=== PATIENT | female | born 1960 | race Caucasian/White ===

== ENCOUNTER 2017-03-30 09:30 | Emergency (ER) | payer BC ==
[2017-03-30 09:42] VITALS: BP 115/62
--- NOTE | 2017-04-14 17:06 | UC ---
Skin Complaint HPI - HPI Summary HPI Summary: Pt presents to the with a CC of a pimple on the inside of her left nare since the past few weeks. pt lanced it with a clean needle 3 days ago and now the area is red, swollen, and painful. She states the redness and pain have both become worse. Denies hx of MRSA. Patient is otherwise healthy and is not immunocompromised. Denies previous skin infections. - History of Current Complaint Chief Complaint: UCSkin Time Seen by Provider: 03/30/17 09:43 Stated Complaint: NOSE COMPLAINT-RED/SWOLLEN Hx Obtained From: Patient ?: No Onset/Duration: Sudden Onset Skin Exposure Onset/Duration: Hours Ago Timing: Constant Onset Severity: Mild Current Severity: Moderate Pain Intensity: 7 Pain Scale Used: 0-10 Numeric Location: Nose Character: Swelling, Raised, Painful Aggravating: Touch Alleviating: Nothing Associated Signs & Symptoms: Positive: Negative - Allergy/Home Medications Allergies/Adverse Reactions: Allergies Allergy/AdvReac Type Severity Reaction Status Date / Time No Known Allergies Allergy Verified 11/18/13 19:29 Home Medications: Home Medications Fluticasone Propionate (Nasal) [Flonase Allergy Relief] 03/30/17 [History] ValACYclovir (*) [Valtrex 1 GM(*)] 03/30/17 [History] Review of Systems Constitutional: Negative Skin: Other - small red papule with surround erythema on iside of the left nare Eyes: Negative ENT: Negative Motor: Negative Neurovascular: Negative Musculoskeletal: Negative Psychological: Negative All Other Systems Reviewed And Are Negative: Yes PMH/Surg Hx/FS Hx/Imm Hx Previously Healthy: Yes - Surgical History Surgical History: None - Family History Known Family History: Positive: Unknown - Social History Occupation: Employed Full-time Lives: With Family Alcohol Use: Weekly Substance Use Type: None Smoking Status (MU): Never Smoked Tobacco Physical Exam Triage Information Reviewed: Yes Appearance: Well-Appearing, No Pain Distress, Well-Nourished Vital Signs: Initial Vital Signs Temp 98.8 F 03/30/17 09:37 Pulse 75 03/30/17 09:37 Resp 16 03/30/17 09:37 BP 115/62 03/30/17 09:37 Pulse Ox 100 03/30/17 09:37 Vital Signs Reviewed: Yes Eye Exam: Normal Eyes: Positive: Conjunctiva Clear ENT Exam: Normal ENT: Positive: TMs normal, Other: - small red papule with surround erythema on iside of the left nare Dental Exam: Normal Neck exam: Normal Neck: Positive: Supple, Nontender Cardiovascular Exam: Normal Cardiovascular: Positive: RRR, No Murmur Musculoskeletal Exam: Normal Musculoskeletal: Positive: Strength Intact Neurological Exam: Normal Psychological Exam: Normal Psychological: Positive: Normal Response To Family Skin Exam: Normal Course/Dx - Course Course Of Treatment: Patient presents to [facility] small red papule with surrounding erythema on inside of the left nare. No hx of MRSA or skin infections. Patient is not a diabetic or immunocompromised. Patient given keflex for surrounding erythema and worsening pain. fluconazole given at patients request for secondary infection. mupirocin oinmtent prescribed topically. return if symptoms worsen. - Differential Diagnoses - Skin Complaint Differential Diagnoses: Other - papule, pustule, pimple, staph, mrsa, cellulitis - Diagnoses Provider Diagnoses: nasal papule with cellulitis Discharge - Discharge Plan Condition: Stable Disposition: HOME Prescriptions: Cephalexin CAP* [Keflex CAP*] 250 mg PO QID #28 cap Fluconazole 150 MG (NF) [Diflucan 150 mg (NF)] 150 mg PO ONCE #1 tab Mupirocin 2% OINT* [Bactroban 2 % Oint*] 1 applic TOPICAL TID #1 tube Patient Education Materials: MRSA (Methicillin-Resistant Staphylococcus Aureus ) (ED) Referrals: No Primary Care Phys,NOPCP [Primary Care Provider] - Additional Instructions: Cleanse wound with soap and water Apply mupirocin 2% ointment to area three times daily Take Keflex as prescribed Clean the tip of flonase applicator well prior to use Keep inside the nares of the nose clean. Take a probiotic 2 hours prior to use of one of the doses of keflex Use Fluconazole if needed for secondary yeast infections.
== END 2017-03-30 10:01 | disposition home or self-care (01) ==
LOC: UCEAST 09:30
DX: J34.0 Abscess, furuncle and carbuncle of nose (principal); R23.8 Other skin changes
CPT/HCPCS: 99202; G0463

== ENCOUNTER 2019-01-31 09:00 | Emergency (ER) | payer BC ==
--- NOTE | 2019-01-31 09:03 | UC ---
Abdominal Pain Female HPI - HPI Summary HPI Summary: 58 yo female presents with right rib pain for the last 1.5 weeks. She tells me that around that time she leaned out of her car window with her right ribs on the door. While doing so, she felt a pop and sharp pain in her ribs. Has had pain here since. She has tried aspirin with no relief of her discomfort. Pain worse with movement. Denies SOB, chest pain, n/v, abdominal pain. - History of Current Complaint Stated Complaint: RIB PAIN Time Seen by Provider: 01/31/19 09:02 Hx Obtained From: Patient Onset/Duration: Sudden Onset Timing: Constant Severity Initially: Moderate Severity Currently: Moderate Pain Intensity: 5 Pain Scale Used: 0-10 Numeric Allergies/Adverse Reactions: Allergies Allergy/AdvReac Type Severity Reaction Status Date / Time No Known Allergies Allergy Verified 01/31/19 09:08 Home Medications: Home Medications Cetirizine* [ZyrTEC 10 MG TAB*] 10 mg PO DAILY 01/31/19 [History Confirmed 01/31] PMH/Surg Hx/FS Hx/Imm Hx - Additional Past Medical History Additional PMH: None - Surgical History Surgical History: Yes Surgery Procedure, Year, and Place: Left knee. right wrist. tubal ligation - Family History Known Family History: Positive: Unknown - Social History Lives: With Family Alcohol Use: Weekly Alcohol Amount: weekends Substance Use Type: None Smoking Status (MU): Never Smoked Tobacco Review of Systems All Other Systems Reviewed And Are Negative: Yes Constitutional: Positive: Negative Skin: Positive: Negative Respiratory: Positive: Negative Cardiovascular: Positive: Negative Neurovascular: Positive: Negative Musculoskeletal: Positive: Other: - Right rib pain Neurological: Positive: Negative Psychological: Positive: Negative Physical Exam - Summary Physical Exam Summary: GENERAL: NAD. WDWN. No pain distress. SKIN: No rashes, sores, lesions, or open wounds. NECK: Supple. Nontender. No lymphadenopathy. CHEST: CTAB. No r/r/w. No accessory muscle use. Breathing comfortably and in no distress. CV: RRR. Without m/r/g. Pulses intact. Cap refill <2seconds ABDOMEN: Soft. NTTP. No distention or guarding. No CVA tenderness. Bowel sounds present. Negative rosa sign. MSK: Right 8-9th rib anterolateral rib TTP. Pain reproduced with right arm movement and torso twisting. No ecchymosis. NEURO: Alert. PSYCH: Age appropriate behavior. Triage Information Reviewed: Yes Vital Signs: Vital Signs: Temp Pulse Resp BP Pulse Ox 99.3 F 74 18 113/47 100 01/31/19 09:05 01/31/19 09:05 01/31/19 09:05 01/31/19 09:05 01/31/19 09:05 Vital Signs Reviewed: Yes Abd Pain Female Course/Dx - Course Course Of Treatment: XR: IMPRESSION: NO DISPLACED RIB FRACTURE OR PNEUMOTHORAX. Suspect rib contusion. Advised to stop aspirin and try ibuprofen and ice/heat to the area. Will also rx for a lidoderm patch for her discomfort. F/u with PCP if symptoms do not improve. - Differential Dx/Diagnosis Provider Diagnosis: Rib contusion Discharge - Sign-Out/Discharge Documenting (check all that apply): Patient Departure All imaging exams completed and their final reports reviewed: Yes - Discharge Plan Condition: Stable Disposition: HOME Prescriptions: Lidocaine PATCH 5%* [Lidoderm 5% Patch*] 1 patch TRANSDERM DAILY PRN #1 box PRN Reason: Pain Patient Education Materials: Rib Contusion (ED) Referrals: Tamie Chaudhari MD [Primary Care Provider] - Additional Instructions: If you develop a fever, shortness of breath, chest pain, new or worsening symptoms - please call your PCP or go to the ED. Your X-Ray did not show a fracture. Please stop taking aspirin and try ibuprofen for your discomfort. May wear the pain patch for 12 hours at a time as needed for comfort and pain relief. - Billing Disposition and Condition Condition: STABLE Disposition: Home - Attestation Statements Provider Attestation: I was available for consult. This patient was seen by the GALINA. The patient was not presented to, seen by, or examined by me. -Rosey
[2019-01-31 09:08] VITALS: BP 113/47
== END 2019-01-31 09:44 | disposition home or self-care (01) ==
LOC: UCEAST 09:00
DX: S20.211A Contusion of right front wall of thorax, initial encounter (principal); X58.XXXA Exposure to other specified factors, initial encounter; Y92.9 Unspecified place or not applicable
CPT/HCPCS: 99212; G0463

== ENCOUNTER 2019-04-24 15:16 | Emergency (ER) | payer BC ==
[2019-04-24 15:27] VITALS: BP 113/65
[2019-04-24] MEDS ORDERED: Ketorolac INJ* 30 MG/ML 1 ML VIAL IM ONE (15:55)
--- NOTE | 2019-04-24 16:03 | UC ---
Back Pain HPI - HPI Summary HPI Summary: Patient awakened 2 days ago with low back pain mostly on the left side. She states it has progressively worsened and now shoots down her left leg. She has had sciatica in the past on the right side. She denies any urinary symptoms. No fever, chills or recent illness. - History of Current Complaint Chief Complaint: UCBackPain Stated Complaint: BACK PAIN Time Seen by Provider: 04/24/19 15:49 Hx Obtained From: Patient ?: No Onset/Duration: Gradual Onset Timing: Constant - Pain is constant but worse intermittently was movement. Severity Initially: Mild Severity Currently: Moderate Pain Intensity: 8 Character: Sharp, Dull, Aching - Mostly in the left buttock area. Patient denies any injury. Aggravating Factor(s): Movement, Lifting, Bending Alleviating Factor(s): Rest, Heat, Cold Associated Signs And Symptoms: Negative: Weakness, Numbness, Tingling, Abdominal Pain, Flank Pain, Bladder Incontinence, Bowel Incontinence, Pain with Weight Bearing Related History: Similar Episode Dx As - Patient has had sciatica on the right side before. - Allergies/Home Medications Allergies/Adverse Reactions: Allergies Allergy/AdvReac Type Severity Reaction Status Date / Time environmental Allergy Congestion Uncoded 04/24/19 15:26 Home Medications: Home Medications Acetaminophen [Non-Aspirin] 650 mg PO ONCE PRN 04/24/19 [History Confirmed 04/24] Ibuprofen [Advil] 400 mg PO ONCE PRN 04/24/19 [History Confirmed 04/24/19] Pseudoephedrine HCl [Sudafed] 1 tab PO ONCE PRN 04/24/19 [History Confirmed ] PMH/Surg Hx/FS Hx/Imm Hx - Additional Past Medical History Additional PMH: She denies any saddle anesthesia and no numbness in her extremities. Previously Healthy: Yes - Surgical History Surgical History: Yes Surgery Procedure, Year, and Place: Left knee. right wrist. tubal ligation - Family History Known Family History: Positive: Unknown - Social History Occupation: Unemployed Alcohol Use: Weekly Alcohol Amount: weekends Substance Use Type: None Smoking Status (MU): Never Smoked Tobacco Review of Systems All Other Systems Reviewed And Are Negative: Yes Constitutional: Positive: Negative Genitourinary: Positive: Negative, Other - No difficulty urinating or defecating. Motor: Positive: Negative Neurovascular: Positive: Negative, Other - Denies any saddle anesthesia and noted numbness or tingling in extremities. Musculoskeletal: Positive: Other: - Patient states she has pain on the left lower back area down into the buttock and shooting down the anterior portion of her left thigh. Neurological: Negative: Weakness, Paresthesia, Numbness Is Patient Immunocompromised?: No Physical Exam Triage Information Reviewed: Yes Appearance: Well-Appearing, Well-Nourished, Pain Distress - Patient is able to sit semi-comfortably although she is having constant left lower back pain which worsens with movement. Vital Signs: Initial Vital Signs Temp 98.2 F 04/24/19 15:24 Pulse 74 04/24/19 15:24 Resp 18 04/24/19 15:24 BP 113/65 04/24/19 15:24 Pulse Ox 100 04/24/19 15:24 Vital Signs Reviewed: Yes Respiratory: Positive: Lungs clear, Normal breath sounds, No respiratory distress, No accessory muscle use Cardiovascular: Positive: RRR, No Murmur, Pulses Normal, Brisk Capillary Refill Abdomen Description: Positive: Nontender, No Organomegaly Bowel Sounds: Positive: Present Musculoskeletal: Positive: Strength Intact, ROM Intact, No Edema, Other: - Good peripheral pulses neuro sensation capillary refill. Mildly positive left straight leg raise. She does have tenderness on palpation of the left mid buttock and LS-spine area. Neurological: Positive: Alert, Muscle Tone Normal, Other: - Reflexes +2 at the knee Psychological Exam: Normal Skin Exam: Normal Back Pain Course/Dx - Course Course Of Treatment: Patient was given Toradol 30 mg IM. I'm also going to treat her with prescription tract Motrin and Flexeril. She may apply ice or heat to the area whatever's comfortable. She is to avoid movements that cause pain. She is to follow-up with her primary care provider in 3 or 4 days if no improvement. I did advise her to go to the emergency room if she has any numbness or tingling in her groin area or her extremities. - Differential Dx/Diagnosis Provider Diagnosis: Low back strain Discharge - Sign-Out/Discharge Documenting (check all that apply): Patient Departure All imaging exams completed and their final reports reviewed: No Studies - Discharge Plan Condition: Fair Disposition: HOME Prescriptions: Cyclobenzaprine TAB* [Flexeril 10 MG TAB*] 10 mg PO TID PRN 5 Days #15 tab PRN Reason: Pain Ibuprofen TAB* [Motrin TAB* 600 MG] 600 mg PO Q8H PRN #20 tab PRN Reason: Pain Patient Education Materials: Low Back Strain (ED) Referrals: Tamie Chaudhari MD [Primary Care Provider] - Additional Instructions: Apply heat or ice to the sore area, avoid movements that cause pain, avoid lifting, bending, pushing, pulling, twisting. Take the Motrin with food. The muscle relaxant can cause drowsiness therefore do not drive or operate heavy machinery or alcohol irate taking the muscle relaxant. Definite follow-up with your primary care provider in 3 or 4 days if no improvement. If you develop any numbness in your extremities or in your groin area you are to go to the emergency room. - Billing Disposition and Condition Condition: FAIR Disposition: Home
== END 2019-04-24 16:22 | disposition home or self-care (01) ==
LOC: UCEAST 15:16
DX: S39.012A Strain of muscle, fascia and tendon of lower back, initial encounter (principal); X58.XXXA Exposure to other specified factors, initial encounter; Y92.9 Unspecified place or not applicable
CPT/HCPCS: 96372; 99212; G0463; J1885